=== PATIENT | female | born 1940 | race Caucasian/White ===

== ENCOUNTER 2016-11-12 07:02 | Inpatient (IN) | payer MEDICARE, OTHER ==
[~2016-11-12] VITALS: Ht 154.9 cm; Wt 60.0 kg
[2016-11-12] VITALS (7 sets, daily range): BP systolic 139–177; BP diastolic 69–85; PULSE 80–118; RESP 18–20; TEMP 100.8; Ht 154.9 cm; Wt 60.0 kg
[~2016-11-12 07:02] MED LIST: ACET500C5 PO; AMLO-147 PO; ASPI81TA3 PO; AZIT250T6 PO; FLUT16SP17 NASAL; HYD25 PO; HYDR-3671 PO; LISI40TA9 PO; LORA-441 PO; METO-407 PO; POTA8CAP PO
[2016-11-12] MEDS ORDERED: ASPIRIN 325 MG TAB PO STA (07:06)
[2016-11-12 07:25] LABS: ADD SCAN DIFF NO
[2016-11-12 07:36] LABS: POTASSIUM 3.3 mmol/L (3.5-5.1)
[2016-11-12 07:37] LABS: ABNORMAL IP MESSAGE 1; HEMOGLOBIN 13.5 g/dl (12.0-16.0); INR 1.05; MEAN CORPUSCULAR HEMOGLOBIN 30.1 pg (29.0-33.0); MEAN CORPUSCULAR HGB CONC 33.8 g/dl (32.0-37.0); MEAN CORPUSCULAR VOLUME 89.3 fl (82.0-101.0); PLATELET COUNT 403 10^3/UL (140-415); PROTIME 13.7 Sec (12.2-14.2); PT RATIO 1.1; RED BLOOD COUNT 4.48 10^6/ul (4.20-5.40); RED CELL DISTRIBUTION WIDTH 13.5 % (11.5-14.5); WHITE BLOOD COUNT 30.9 10^3/ul (4.8-10.8)
[2016-11-12 07:38] LABS: PARTIAL THROMBOPLASTIN TIME 33.6 Sec (25.0-35.0)
[2016-11-12 07:39] LABS: CREATININE 0.63 mg/dl (0.44-1.00)
[2016-11-12 07:40] LABS: CALCIUM 9.5 mg/dl (8.4-10.2)
[2016-11-12 07:52] LABS: TROPONIN-I 0.037 ng/ml (0.00-0.12)
[2016-11-12] MEDS ORDERED: morphine 4 MG/ML VIAL IV STA (08:01)
[2016-11-12] MEDS ORDERED: SOD CHLORIDE 0.9% 100 ML ONE (08:10)
[2016-11-12] MEDS ORDERED: IODIXANOL LOCM 100 ML BTL ONE (08:10)
--- NOTE | 2016-11-12 08:20 | RADRPT ---
PROCEDURE: XR Chest 1 view. CLINICAL INDICATION: Chest pain TECHNIQUE: AP views of the chest were obtained. COMPARISON: February 07, 2016 FINDINGS: The heart is large. Calcified atherosclerosis is noted in the aorta. Left-sided dual chamber pacema ker has its leads over the heart and appears grossly stable, given differences in technique. The siva ngs are hyperexpanded. Chronic interstitial prominence is seen in both lungs. Scattered subsegment al atelectasis is noted in the bilateral lower lobes. No consolidations are identified. No pneumoth orax is seen. Osseous structures are intact. IMPRESSION: Cardiomegaly with calcified atherosclerosis in the aorta. Hyperexpanded lungs with chronic mild interstitial prominence in both lungs. Findings could reflect COPD. Scattered subsegmental atelectasis in the bilateral lower lobes. RPTAT: AA .Maxx Lucio MD, Date Time Electronically viewed and signed by .Maxx Lucio MD, on 11/12/2016 08:20 .P/
[2016-11-12] MEDS ORDERED: SOD CHLORIDE 0.9% 500 ML IV ONE ×2 (08:30→10:00)
[2016-11-12 08:48] LABS: LYMPHOCYTES # 3.4 10^3/ul (0.8-2.9); MONOCYTE # 1.5 10^3/ul (0.3-0.9); NEUTROPHIL # 23.2 10^3/ul (1.6-7.5)
[2016-11-12] MEDS ORDERED: POTASSIUM CHLORIDE (SR) 10 MEQ TAB PO SCH (09:30)
--- NOTE | 2016-11-12 09:31 | RADRPT ---
PROCEDURE: CTA Chest and pulmonary angiogram. CLINICAL INDICATION: Chest pain and shortness of breath. Pleuritic chest pain and tachycardia. TECHNIQUE: CT scan of the chest and CT pulmonary angiogram was performed on a multidetector high-r esolution CT scanner. High-resolution thin slice coronal and sagittal imaging was obtained from the axial source images. 3-D volumetric rendered post processing was performed as well. The patient w as examined following the uncomplicated intravenous administration of 85 cc of Visipaque 320. The im ages were reviewed on a PACS workstation. The total exam CTDI equals 13.15, 5.04 and the total exam DLP equals 194.49 mGy-cm. One or more of the following dose reduction techniques were used: Automated exposure control. Adjustment of the mA and/or kV according to patient size. Use of iterative reconstruction technique. COMPARISON: No prior studies are available for comparison. FINDINGS: CT chest: There is dense consolidation in the posterior aspect of the left upper lobe. No focal opacification, effusion, pneumothorax, edema, or nodules are seen. The central tracheobronchial tree is clear. The mediastinum is unremarkable without evidence for mass or lymphadenopathy. The vascular structur es of the mediastinum are normal in course and caliber. The heart size is mildly enlarged without p ericardial thickening or effusion. There is left ventricular hypertrophy. Left subclavian dual chamb er pacemaker is in place. The axillary, subpectoral, and supraclavicular regions are unremarkable. There are small calcified nodules in the right thyroid lobe. Imaging obtained through the upper abdo men is remarkable for new 3 cm nodular mass in the left adrenal gland. There is approximately 1 cm f lash filling hemangioma in the lateral segment of the left hepatic lobe, unchanged. There is approx imately 3.3 cm solid mass in the left kidney The adrenal glands are symmetrically normal. The surr ounding chest wall is unremarkable. The osseous structures are remarkable for degenerative spondylo sis of the spine. CT pulmonary angiogram: No thrombus, clot, filling defect, or pulmonary web is identified. The pulmonary arteries are d[place] l in caliber and morphology. No filling defect is present to suggest pulmonary embolism. There is no evidence for pulmonary arterial hypertension. IMPRESSION: 1. No evidence for pulmonary embolism. 2. Dense consolidation in the posterior aspect of the left upper lobe in keeping with pneumonia. 3. Partially imaged approximately 3.3 cm solid mass in the left kidney. Recommend dedicated CT / o r MRI with contrast per renal protocol for further evaluation. 4. New approximately 3 cm left adrenal mass concerning for metastasis. 5. Approximately 1 cm flash filling hemangioma in the left hepatic lobe, unchanged. 6. Aortic and coronary artery calcifications. 7. Cardiomegaly with left ventricular hypertrophy. RPTAT: BB .Eric Knapp MD, MD Date Time Electronically viewed and signed by .Eric Knapp MD, on 11/12/2016 09:30 .O/
[2016-11-12] MEDS ORDERED: CEFTRIAXONE 1 GM/50 ML (PMX) 50 ML IVPB STA (09:39)
[2016-11-12] MEDS ORDERED: AZITHROMYCIN 500MG/NS (PMX) 250 ML IV STA (09:39)
[2016-11-12] MEDS ORDERED: ACETAMINOPHEN 325 MG TAB PO PRN (10:00)
[2016-11-12] MEDS ORDERED: SOD CHLORIDE 0.9% 1,000 ML IV ONE (10:00)
[2016-11-12] MEDS ORDERED: ONDANSETRON 4 MG INJ IV PRN (10:00)
[2016-11-12] MEDS ORDERED: INFLUENZA VIRUS VACCINE 0.5 ML SYG IM* ONE (11:30)
[2016-11-12] MEDS ORDERED: DOCUSATE SODIUM 100 MG CAP PO PRN (13:30)
[2016-11-12] MEDS ORDERED: LORAZEPAM 0.5 MG TAB PO PRN (13:30)
[2016-11-12] MEDS ORDERED: NITROGLYCERIN (SL) 0.4 MG TAB SL PRN (13:30)
[2016-11-12] MEDS ORDERED: ALBUTEROL/IPRATROPIUM (NEB) 3 ML AMP NEB PRN (13:30)
[2016-11-12] MEDS ORDERED: MAGNESIUM HYDROXIDE 30ML CUP PO PRN (13:30)
[2016-11-12] MEDS ORDERED: ZOLPIDEM 5 MG TAB PO PRN (13:30)
[2016-11-12] MEDS ORDERED: NACL 0.9% 3 ML SYG IV SCH (13:30)
[2016-11-12] MEDS ORDERED: IBUPROFEN 600 MG TAB PO PRN (13:30)
[2016-11-12] MEDS: morphine 2 MG INJ IV PRN ×2 (14:09→20:22)
[2016-11-12] MEDS: FLUTICASONE 0.05% 16 GM NAS SPRAY NASAL SCH ×2 (15:00→21:00)
[2016-11-12 15:26] LABS: CK-MB 0.38 ng/ml (0.0-2.4)
[2016-11-12 15:30] LABS: TROPONIN-I 0.029 ng/ml (0.00-0.12)
[2016-11-12 18:58] LABS: CK-MB 0.69 ng/ml (0.0-2.4)
[2016-11-12 19:01] LABS: TROPONIN-I 0.066 ng/ml (0.00-0.12)
[2016-11-12] MEDS: METOPROLOL 100 MG TAB PO SCH (20:31)
--- NOTE | 2016-11-12 21:49 | HP ---
DATE OF ADMISSION: 11/12/2016 REASON FOR ADMISSION: Chest pain, shortness of breath, pneumonia. HISTORY OF PRESENT ILLNESS: The patient is a 76-year-old female, very well known to me. She has a history of scoliosis, arthritis, arthralgia, questionable interstitial lung disease, hyper tension, osteoporosis, history of leukocytosis, status post bone marrow biopsy in the past, and also a history of multiple thyroid nodules and she is being followed closely by Dr. Segovia, the endocri nologist. The patient also has a history of renal and adrenal mass seen on the CAT scan in 2011, bu t the patient states that she knows about it and she deferred evaluation. The patient is also statu s post recent hospitalization to [facility] back in February 2016, when at that time s he was diagnosed with symptomatic bradycardia, second-degree AV block, and she underwent a pacemaker placement. The patient also gets Remicade for her psoriatic arthritis and she sees Dr. Machuca and Dr. Marshall, the aquatics manager specialist. The patient was in her usual state of health up until last week when she started to have a cough and mild shortness of breath. Her symptoms have worsene d to the point where she could not take a deep breath and she would complain of left-sided chest yeni n. She presents today to the emergency department and she was found to have significant leukocytosi s. Her white count was 30,000. Workup included a chest x-ray which showed cardiomegaly with calcif ied atherosclerosis in the aorta, hyperexpanded lungs with chronic mild interstitial prominence in b oth lungs; finding could reflect COPD, and scattered subsegmental atelectasis in the bilateral lower lobes. It was decided to proceed with a CT pulmonary angiogram because the patient was tachycardic , febrile. A CT scan did show, unfortunately, the following: Dense consolidation in the posterior aspect of the left upper lobe, in keeping with pneumonia. There is a partially imaged, approximatel y 3 x 3 cm solid mass in the left kidney. Recommend dedicated CT or MRI with contrast per renal pro tocol for further evaluation. New, approximately 3 cm left adrenal mass concerning for metastasis. Approximately 1 cm flash filling hemangioma in the left hepatic lobe, unchanged. Aortic and rea ry artery calcification. Cardiomegaly with left ventricular hypertrophy. The patient received Roce phin and azithromycin, also IV fluids, and she was admitted for further care. Otherwise, she denies any weight loss. She denies any loss of appetite. She denies any weakness or numbness. She does have generalized body ache secondary to psoriatic arthritis, complaining of some headaches. The pat iealysha denies dysuria. Denies any weakness or numbness. The patient is admitted for further care. I n the ER, influenza A and B were negative. 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 ALLERGIES: 1. LEVAQUIN. 2. ATENOLOL. SHE ACTUALLY TAKES BETA BLOCKERS. 3. SHE IS LACTOSE INTOLERANT. FAMILY HISTORY: Mother from pancreatic cancer. Father from a brain tumor at age 40. SOCIAL HISTORY: She used to smoke less than a pack a day, but stopped 25 years ago. Alcohol modera tely in the past. IV drug abuse is none. She does smoke marijuana. Her rheumatologists are Dr. Kuldeep Machuca and Dr. Marshall; handicraft or hobby shop manager is Dr. Todd Gao; [facility] primary medical doctor is Dr. Karolyn Ravi; business school dean is Dr. Christian Guzman; spout liner helper is Liz Segovia. She has also [facility] specialist, Dr. Garcia. MEDICATIONS: Include the followin. Remicade. 2. . 3. Vitamin D. 4. Folic acid. 5. Norvasc. 6. Lisinopril. 7. Metoprolol. 8. Flexeril. 9. [facility]. These are amongst some of the meds that she takes. PAST SURGICAL HISTORY: Includes vitrectomy in 2011, vaginal hysterectomy at age 27, and also pacema ker placement in February 2016. PHYSICAL EXAMINATION: VITAL SIGNS: Temperature is high as 102, pulse 86, respirations 18, blood pressure , saturatio ns 94% on room air. GENERAL: The patient is in no acute distress. The patient is pale. HEENT: Dry mucous membranes. CARDIOVASCULAR: S1 and S2. LUNGS: Decreased bilaterally. ABDOMEN: Soft, nontender. EXTREMITIES: No clubbing, cyanosis, or edema. The patient is moving all extremities. Strength is 5/5 in all extremities. LABORATORY: White count is 30.9, hemoglobin 13.5, hematocrit 40, platelet count is 403. Leukocytes 75%, bands 5%, lymphocytes 11%. Chemistry: Sodium is 141, potassium 3.3, chloride 100, bicarbonat e 24, BUN is 13, creatinine 0.63, glucose of 180. BNP is 1590. Troponin is negative at 0.037. INR is 1.05. Influenza A and B is negative. CT pulmonary angiogram as noted. Looking at all the records as well, she had a CT scan of the chest on 01/14/2012. At that time she was found to have bilateral thyroid nodules, may be benign or hilary gnant, ascending thoracic aorta. Left adrenal heterogeneous nodule measuring up to 2.6 cm. R ight adrenal nodule measuring up to 0.8 cm. Possibly solid left renal mass measuring 2.4 cm. Cyst in the mid left kidney measuring 2.3 cm. I recommended at that time an MRI. Again, the patient sta doreen that she deferred the treatment. EKG: Bifascicular block, left ventricular hypertrophy, possible lateral infarct, age undetermined, i nferior infarct, age undetermined. ASSESSMENT AND PLAN: This is an unfortunate 76-year-old female who is immunocompromised a s she has psoriatic arthritis, on Remicade, status post pacemaker placement, a history of persistent leukocytosis, and chronic pain, who presents with almost 1 week of flu-like symptoms and was found to have pneumonia, severe leukocytosis, and high grade fevers. 1. Respiratory. CT scan suggests pneumonia. I doubt tuberculosis. The patient will be treated azithromycin. Switch ceftriaxone to cefepime for slightly broader coverage because of the patient 's immunocompromised state. Monitor white count closely. The patient will be placed on breathing t reatments as needed, oxygen support, and will monitor the patient's symptoms. 2. Cardiovascular. Patient with an extensive cardiac history. No evidence of fluid overload state . The patient is status post pacemaker placement. Continue all antihypertensive medications. The patient will be placed on Lovenox for DVT prophylaxis. 3. Renal mass with adrenal mass. Will consult urology. May consider a dedicated MRI of the kidney s and adrenal glands. Will discuss with urology. 4. History of thyroid nodules. Dr. Segovia to follow. Can be done likely on an outpatient basis. 5. Patient to be placed on gastrointestinal prophylaxis with Protonix. 6. Case discussed with the family at bedside as well. 7. History of psoriatic arthritis. Will consult rheumatology, as the patient's symptoms occurred a fter Remicade administration. 8. Renal. Monitor potassium as the patient with hypokalemia. The patient will be monitored closel y in the telemetry unit as the patient is tachycardic and febrile. Will follow closely. Dictated By: SHANTA CARRINGTON/SHANTEL Conf#: [id number] DID#: [id number]
[2016-11-12] MEDS: CEFEPIME 2GM/50 ML (PMX) 50 ML IV SCH (22:10)
[2016-11-13] VITALS (12 sets, daily range): BP systolic 127–154; BP diastolic 64–78; PULSE 79–102; RESP 18–20
--- NOTE | 2016-11-13 00:55 | CONS ---
DATE OF ADMISSION: 11/12/2016 DATE OF CONSULTATION: 11/12/2016 TYPE OF CONSULTATION: Urology. REQUESTING PHYSICIAN: Dr. Devonte Tenorio Dear Devonte: Thank you for asking me to see this patient in urological consultation. HISTORY OF PRESENT ILLNESS: This is a very pleasant 76-year-old female who was admitted to the [facility] because of shortness of breath and pleuritic chest pain and tachycardia. The patient underwent a CT scan of the chest and abdomen and that showed a 3.3 cm solid mass in the left kidney and there was also a 3 cm left adrenal mass concerning for metastasis. Therefore, a urological consultation w as requested. The patient states that she was told in 2011 that she does have a left renal tumor an d at that time she was supposed to have followed up on that, but she never got down to it. At that t ludy, there was a 2.6 cm nodule in the left adrenal, and also there is a possible solid mass in the m id to lower left kidney and at that time, it measured 2.4 x 2.4 cm. The patient denies any urinary symptoms in that she does not have any history of gross hematuria, no dysuria, no urgency or urgency incontinence and she has not had any history of kidney stones. PAST MEDICAL HISTORY: Includes a history of pacemaker placement, history of hemorrhoids, injection of sclerosing agent in it, bilateral cataract surgery and also surgery on her retina. She does have a history of thyroid nodule that is hard and she sees Dr. Segovia for that. She has had a vaginal hysterectomy in 1967. She is known to have a history of hypertension. There is no history of diab etes. SOCIAL HISTORY: She used to smoke about a pack of cigarettes a day for about 30 years and she quit in 1986. There is no history of alcohol abuse. There is no history of hepatitis. No GI disease. She does, however, have a history of psoriatic arthritis and she smokes marijuana for pain control f or that. She also does get Remicade injections regularly for the psoriatic arthritis. She is a gra gem 13, para 2, 10 miscarries and 1 was a D and C. All normal deliveries. MEDICATIONS: That she presently is on include: 1. Azithromycin. 2. She got the influenza virus vaccine. 3. Lovenox. 4. Norvasc. 5. Aspirin. 6. Lisinopril. 7. Potassium chloride. 8. Protonix. 9. Cefepime. 10. Metoprolol. 11. Flonase. 12. Apresoline. 13. Lorazepam. 14. Nitroglycerin p.r.n. 15. Zofran p.r.n. 16. Ibuprofen p.r.n. for pain. 17. Morphine. 18. Ambien. 19. Colace. 20. Magnesium hydroxide. 21. Albuterol. 22. Ipratropium. PHYSICAL EXAMINATION GENERAL: Reveals an elderly female who is very pleasant. She is a 76 years old. She weighs 60 kg. She is 61 inches tall. VITAL SIGNS: She had a temperature of 102 at noon today and now her temperature is 100, the pulse w as 87, respiration 18, blood pressure 139/85. There is no cervical adenopathy. NECK: Soft and supple. She did have also a right breast biopsy and that was negative 3 years ago. ABDOMEN: Soft. There is no abdominal mass palpable. There are no scars on the abdomen. There is n o flank tenderness. PELVIC: Revealed no mass and no discharge. EXTREMITIES: Reveal no edema. The patient also on the physical exam does have a pacemaker. LABORATORY DATA: Her CBC shows a white count of 30.9, hemoglobin 13.5, hematocrit 40.0. The BUN is 13, creatinine 0.63, sodium 141, potassium 3.3, chloride 100, CO2 of 24. PT is 13.7, INR 1.05. The chest x-ray is reported as cardiomegaly with calcified atherosclerosis in the aorta, hyperexpand ed lungs was chronic mild interstitial prominence in both lungs. Findings could reflect COPD, scatt ered subsegmental atelectasis in the bilateral lower lobes. The CT scan reported as there is no evid ence of pulmonary embolism, dense consolidation in the posterior aspect of the left upper lobe in ke eping with pneumonia, partially imaged approximately 3.3 solid mass in the left kidney and recommend ed dedicated CT or MRI with contrast per renal protocol for further evaluation, new approximately 3 cm left adrenal mass concerning for mass approximately 1 cm flash filling hemangioma in the left hep atic lobe, unchanged, aortic and coronary artery calcification, cardiomegaly with left ventricular h ypertrophy. IMPRESSION: Left renal mass not well delineated with the CT of the chest and left adrenal mass. RECOMMENDATION: To do a CT scan of the abdomen and pelvis with IV contrast, and we could do that to [place] or when she is more stable from her lung condition. I will follow her urological problem wit laurel you. I do thank you for allowing me to help in her care. Dictated By: ANUJA ODOM MD BB/NTS Conf#: [id number] DID#: [id number] CC: DEVONTE TENORIO MD;*EndCC*
[2016-11-13] MEDS: morphine 2 MG INJ IV PRN (03:52)
[2016-11-13] MEDS: PANTOPRAZOLE (EC) 40 MG TAB PO SCH (05:17)
[2016-11-13] MEDS: CEFEPIME 2GM/50 ML (PMX) 50 ML IV SCH ×3 (05:17→21:26)
[2016-11-13 06:23] LABS: ADD SCAN DIFF NO
[2016-11-13 06:26] LABS: BASOPHILS % 0.2 % (0.0-2.0); EOSINOPHILS # 0.1 10^3/ul (0.0-0.5); EOSINOPHILS % 0.3 % (0.0-7.0); LYMPHOCYTES # 3.3 10^3/ul (0.8-2.9); LYMPHOCYTES % 17.4 % (15.0-51.0); MEAN CORPUSCULAR HEMOGLOBIN 29.9 pg (29.0-33.0); MEAN CORPUSCULAR HGB CONC 32.4 g/dl (32.0-37.0); MEAN PLATELET VOLUME 9.7 fl (7.4-10.4); MONOCYTE # 1.3 10^3/ul (0.3-0.9); NEUTROPHIL # 14.3 10^3/ul (1.6-7.5); NEUTROPHILS % 74.5 % (39.0-77.0); PLATELET COUNT 348 10^3/UL (140-415); RED BLOOD COUNT 4.02 10^6/ul (4.20-5.40); RED CELL DISTRIBUTION WIDTH 13.7 % (11.5-14.5); WHITE BLOOD COUNT 19.2 10^3/ul (4.8-10.8)
[2016-11-13 07:01] LABS: ALBUMIN 3.3 g/dl (3.3-4.9)
[2016-11-13 07:02] LABS: POTASSIUM 3.9 mmol/L (3.5-5.1)
[2016-11-13 07:04] LABS: ALBUMIN/GLOBULIN RATIO 0.97; BILIRUBIN,INDIRECT 0.1 mg/dl (0-1.1); BILIRUBIN,TOTAL 0.1 mg/dl (0.2-1.3); CALCIUM 8.7 mg/dl (8.4-10.2); CREATININE 0.6 mg/dl (0.44-1.00); TOTAL PROTEIN 6.7 g/dl (6.1-8.1)
[2016-11-13 07:05] LABS: MAGNESIUM 1.9 mg/dl (1.7-2.5)
[2016-11-13 08:24] LABS: THYROID STIMULATING HORMONE 0.466 MIU/L (0.465-4.680)
[2016-11-13] MEDS: LISINOPRIL 20 MG TAB PO SCH (08:46)
[2016-11-13] MEDS: POTASSIUM CHLORIDE (SR) 8 MEQ CAP PO SCH (08:46)
[2016-11-13] MEDS: ASPIRIN 81 MG TAB PO SCH (08:46)
[2016-11-13] MEDS: AMLODIPINE 10 MG TAB PO SCH (08:47)
[2016-11-13] MEDS: METOPROLOL 100 MG TAB PO SCH ×2 (08:47→21:27)
[2016-11-13] MEDS: ENOXAPARIN 40 MG/0.4 ML SYG SC SCH (08:50)
[2016-11-13] MEDS ORDERED: INFLUENZA VIRUS VACCINE 0.5 ML (DISPENSING) IM* ONE (09:00)
--- NOTE | 2016-11-13 09:55 | CONS ---
DATE OF ADMISSION: 11/12/2016 DATE OF CONSULTATION: 11/13/2016 TYPE OF CONSULTATION: Cardiology. REFERRING PHYSICIAN: Dr. Trav MD REASON FOR CONSULTATION: Chest pain. History of heart block. CHIEF COMPLAINT: Shortness of breath, cough and pleuritic chest pain. HISTORY OF PRESENT ILLNESS: Thank you for this referral. History obtained from the patient, corey rodriguez review of the old chart, discussion with Dr. Tenorio and staff. The patient also known from previ ous admissions to the hospital. This is a pleasant 76-year-old female with history of hypertension, history of tachybrady syndrome, status post permanent pacemaker who has been coughing and having sh ortness of breath over the past few days. He got worse and he was having pain with the cough. Yeste rdmichel came into emergency room. By her workup she had a chest x-ray done which only showed hyperexte nded lungs with chronic ____ lung disease. CT pulmonary angiogram was done because of reported ches t pain which did not show any evidence of pulmonary embolus; however, showed dense consolidation in the posterior aspect of the left upper lobe in keeping with pneumonia. The patient has been admitte d for further workup and antibiotic treatment. MEDICATIONS AT HOME: Reviewed as per medical reconciliation, which was personally reviewed. PAST MEDICAL HISTORY: History of hypertension, very labile, difficult to treat. History of sick sin us syndrome with tachybrady syndrome with episode of 2:1 AV block status permanent pacemaker placeme nt by myself about a year ago, history of psoriatic arthritis, possible psoriasis, macular degenerat ion, osteoarthritis, osteopenia, history of multiple thyroid nodules. ALLERGIES: LEVAQUIN. SHE STATED THAT SHE IS ALLERGIC TO ATENOLOL but had tolerated beta bonnie we ll with no issues. Also, lactose intolerance. FAMILY HISTORY: The patient's mother of pancreatic cancer. Father of brain tumor at age 40. SOCIAL HISTORY: The patient has quit smoking. Denies any heavy alcohol use or drug use. Does smok e marijuana though. MEDICATIONS: As per medical reconciliation, personally reviewed, includes also Remicade as well. REVIEW OF SYSTEMS: She denied all other except for above-mentioned. Also, multiple joint pain as w ell. PHYSICAL EXAMINATION: VITAL SIGNS: Temperature 98.1, heart rate 85, blood pressure 142/67, respiration rate of 18, satura ting 95%. HEENT: Normocephalic, atraumatic. Pupils are equal. NECK: Supple. CHEST: Status post pacemaker with no bleeding, no hematoma. CARDIOVASCULAR: Regular rate and rhythm, systolic murmur grade I. PULMONARY: With mild diffuse rhonchi, ____ . GASTROINTESTINAL: Soft, nontender. EXTREMITIES: Trivial edema. NEUROLOGIC: Awake and alert, oriented x3, nonfocal. PSYCHIATRIC: Calm, pleasant. LABORATORY: WBC was 30,000 yesterday and down to 19.2 today, hemoglobin of 12.0, platelet 348. Sod ium 147, potassium 3.9, BUN of 13, creatinine 0.6, glucose of 140. EKG was personally reviewed, omer wed normal sinus rhythm, slight sinus tachycardia with right bundle branch block. Troponin was negative at 0.066. ASSESSMENT AND PLAN: 1. Chest pain, appeared to be nonanginal secondary to severe pneumonia. 2. Lobar pneumonia. 3. History of sick sinus syndrome and tachybrady syndrome. 4. Status post permanent pacemaker. 5. History of psoriatic arthritis. 6. Renal mass and adrenal mass. RECOMMENDATIONS: The patient has a [employer] pacemaker, which I do not believe is MRI compatible. A ntibiotic is managed as per Dr. Tenorio. Continue the blood pressure medications. The patient is als o being evaluated by multiple consultants including urology as well. Continue to monitor with you. Thank you for this referral. Dictated By: KEVIN GARNER MD AV/SHANTEL Conf#: [id number] DID#: [id number] CC: SHANTA TENORIO MD;*EndCC*
[2016-11-13] MEDS: FLUTICASONE 0.05% 16 GM NAS SPRAY NASAL SCH ×2 (12:34→21:26)
[2016-11-13] MEDS: HYDROCODONE/APAP (5/325) TAB PO PRN ×2 (12:35→21:35)
[2016-11-13] MEDS: AZITHROMYCIN 500MG/NS (PMX) 250 ML IV SCH (12:36)
--- NOTE | 2016-11-13 13:41 | RADRPT ---
PROCEDURE: Renal US. CLINICAL INDICATION: Partially visualized mass seen in the left kidney on prior CT. Flank pain. TECHNIQUE: Multiple sonographic images of the kidneys were obtained. The images were reviewed on a PACS workstation. COMPARISON: CT November 12, 2016 FINDINGS: The right kidney measures 10.1 cm. The left kidney measures 10.5 cm. The kidneys demonstrate normal echogenicity. A 3.0 cm heterogeneously hypoechoic, solid nodule is identified in the superior pole o f the left kidney. An adjacent 3.0 cm simple appearing cyst is observed. A 5 mm echogenic, shadowin g stone is identified in the midportion of the right kidney. Questionable, trace left hydronephrosi s is observed. The bladder is filled with a moderate amount of urine and has an unremarkable appearance. IMPRESSION: 3.0 cm heterogeneously hypoechoic solid nodule in the superior pole of the left kidney. Malignancy is not excluded. Further characterization with CT urogram or MRI is recommended. 3.0 cm simple cyst in the superior pole of the left kidney. 5 mm nonobstructing stone in the midportion of the right kidney. Questionable, trace left hydronephrosis. Etiology is uncertain. If further characterization is nee ded CT or MRI could be helpful. RPTAT: AA .Maxx Lucio MD, Date Time Electronically viewed and signed by .Maxx Lucio MD, MD on 11/13/2016 13:41 .P/
--- NOTE | 2016-11-13 13:54 | CONS ---
DATE OF ADMISSION: 11/12/2016 DATE OF CONSULTATION: TYPE OF CONSULTATION: Rheumatology HISTORY OF PRESENT ILLNESS: The patient is a 76-year-old woman with a history of psoriati c arthritis who is being treated and doing well on Remicade every 6 weeks. She was admitted now wit h several days of cough and increasing shortness of breath and was noted to have on CT scan left upp er lobe pneumonia. Also she had leukocytosis of 30,000. She has been treated with antibiotics and feels much better at this point. Her white count has decreased to 19,000. The patient has chronic leukocytosis of around 13,000. In addition, she has a history of chronic adrenal mass noted initial ly in 2011, and the patient apparently did not want further evaluation in the past. That adrenal ma ss at this point was noted to have increased from 2.4 to 3 cm. Unclear if it relates to possible me tastasis. In addition, she was also noted to have a 3 x 3 cm solid mass in the left kidney. The patient received her last Remicade infusion on 10/27/2016. She had been evaluated also a week b efore that and a chest x-ray at that time was read as negative. Her white count was around 13,000 o n both occasions, actually 12,400 on 10/27/2016. PAST MEDICAL HISTORY: Positive for psoriatic arthritis, , osteoporosis, hypertension, osteoart hritis, history of bradycardia, status post pacemaker placement in 01/2016, status post right breas t biopsy in 1987, hysterectomy in 1967 of uterus only, and left fourth digit trigger release in 1999. MEDICATIONS: Prior to admission include: 1. Ibuprofen occasionally. 2. Vitamin D. 3. Flexeril 10 mg at night p.r.n. 4. Lisinopril 40 mg daily. 5. Voltaren gel p.r.n. 6. [place] 10/325 b.i.d. p.r.n. 7. Baby aspirin 81 daily. 8. Flonase 9. Hydralazine 25 mg b.i.d. 10. Amlodipine 5 mg daily. 11. Metoprolol 100 mg b.i.d. 12. Remicade 300 mg every 6 weeks. ALLERGIES: 1. LEVAQUIN. 2. ATENOLOL. 3. IV BONIVA. SOCIAL HISTORY: The patient is . Does not smoke. Drinks alcohol rarely. FAMILY HISTORY: Positive for arthritis in a maternal aunt. 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 Denies upper or lower back pain. GENERAL: Denies fevers, fatigue. SKIN: With the psoriasis doing very well. HEENT: Without dry eyes or mouth. RESPIRATORY: Some shortness of breath but much improved. No pleuritic pain. CARDIOVASCULAR: No present palpitations. GASTROINTESTINAL: Denies GERD or abdominal pain. GENITOURINARY: Denies frequent urination or hematuria. EXTREMITIES: No cyanosis or edema. NEUROLOGIC: Without specific numbness or paresthesias. PHYSICAL EXAMINATION: VITAL SIGNS: Afebrile, blood pressure 127/78, respirations 19, pulse 83, O2 saturation 97% on room air. GENERAL: Well-developed, well-nourished woman in no acute distress, alert, oriented x3. SKIN: With minimal psoriatic areas. No other acute rashes. HEENT: Without acute oral or ocular lesions. NECK: Without lymphadenopathy. CHEST: With occasional scattered rhonchi. HEART: Regular rate and rhythm, I/ systolic ejection murmur. ABDOMEN: Soft, without masses or tenderness EXTREMITIES: Without cyanosis or edema noted. MUSCULOSKELETAL: Without active synovitis. Some tenderness to the left foot with deformities. NEUROLOGIC: Grossly intact. ASSESSMENT: 1. Pneumonia. Unclear if related to Remicade. Remicade may decrease ability to fight infection, a lthough probably does not significantly increase the risk of infection. She seemed to have been sta ble up to a few days ago. 2. Psoriatic arthritis, doing well on present medications. 3. Adrenal mass, workup in progress. 4. Renal mass, workup in progress. PLAN: Continue present plan with antibiotics and workup. Thank you for having me see the patient rheumatologically. Dictated By: RENUKA LÓPEZ/SHANTEL Conf#: [id number] DID#: [id number]
--- NOTE | 2016-11-13 16:45 | PN ---
DATE: 11/13/2016 The patient states she is feeling better. Currently denies chest pain or shortness of breath. The patient was seen by the urologist, Dr. Mina, and by the personal injury attorney, Dr. Marshall. I appreci ate their input. I reviewed their recommendations. The patient is now afebrile since admission, so she is responding well to the treatment. PHYSICAL EXAMINATION: VITAL SIGNS: Temperature is 98, pulse is 80, respirations 19, blood pressure 127/78, saturation 97% on room air. GENERAL: The patient is in no acute distress. HEENT: Normocephalic, atraumatic. The patient is pale. No JVD. CARDIOVASCULAR: S1 and S2. LUNGS: Decreased bilaterally. ABDOMEN: Soft, nontender. EXTREMITIES: No clubbing, cyanosis, or edema. The patient is moving all extremities. LABORATORY: White count improved to 19.2 from 30.9. Hemoglobin 12, hematocrit 37, platelet count 3 48, neutrophils 75%, lymphocytes 17%. Chemistry: Sodium is 147, potassium 3.9, chloride 106, bicar bonate 28, BUN is 13, creatinine 0.6, glucose of 140. Albumin 3.3. TSH is 0.466. Liver enzymes ar e normal. INR 1.05. Influenza A and B are negative. Renal ultrasound done on 11/13/2013 shows the followin) 3-cm heterogeneously hyperechoic solid nodule in the superior pole of the left kidney. Malignancy is not excluded. Further characterization with CT urogram or MRI is recommended . There is also a 3-cm simple cyst in the superior pole of the left kidney. A 5-mm nonobstructing stone in the mid portion of the right kidney. Questionable trace left hydronephrosis. Etiology unc lear. MEDICATIONS: 1. Azithromycin, IV dose per pharmacy. 2. Lovenox 40 mg subcutaneous daily. 3. Norvasc 10 mg daily. 4. Aspirin 81 mg daily. 5. Zestril 20 mg daily. 6. KCl 8 mEq daily. 7. Protonix 40 mg daily. 8. Cefepime 1 gram q.8h. 9. Lopressor 100 b.i.d. 10. Hydralazine q.8h. 11. Ativan p.r.n. 12. Zofran p.r.n. 13. Nitroglycerin p.r.n. 14. Ibuprofen p.r.n. 15. Hubert p.r.n. 16. Morphine p.r.n. 17. Ambien p.r.n. 18. Colace p.r.n. 19. Milk of Magnesia p.r.n. 20. DuoNebs every 2 hours p.r.n. for shortness of breath. ASSESSMENT AND PLAN: This is a 76-year-old female who is immunocompromised. She has psori atic arthritis, on Remicade. Also status post pacemaker placement, chronic pain, back pain, who pre sented with 1 week of flu-like symptoms and was found to have pneumonia and severe leukocytosis. 1. Pneumonia. Patient responding to antibiotic regimen with erythromycin and cefepime. Continue t he same. Follow up white count. Clinically improving. Continue O2 support and breathing treatment s as needed. 2. Cardiovascular. The patient is status post pacemaker placement. Blood pressure is under contro l with the current medications. Continue Lovenox for DVT prophylaxis. 3. Left renal mass, concerning for malignancy. Will do a CT urogram. We cannot do a MRI because o f the patient's pacemaker. Further recommendations per Dr. Reinaldo Mina. 4. History of thyroid nodules. Outpatient followup. 5. Continue gastrointestinal prophylaxis with Protonix. 6. Psoriatic arthritis. Status post Remicade. I appreciate Dr. Marshall's impression. 7. Brief chest pain on admission, likely related to pneumonia, and currently chest pain free. Pain control will be provided. Activity as tolerated. 8. Adrenal mass. Differential may include primary hyperaldosteronism, pheochromocytoma, or [place] s syndrome. May consider endocrine recommendations. May consider oncology consultation as well. Abigail simms will follow. Dictated By: SHANTA CARRINGTON/SHANTEL Conf#: [id number] DID#: [id number]
--- NOTE | 2016-11-13 21:40 | PN ---
DATE: 11/13/2016 SUBJECTIVE: Left renal tumor. The patient today is feeling comfortable. She denies any abdominal pain. OBJECTIVE: VITAL SIGNS: Her temperature is 98.1, pulse 97, respirations 18, blood pressure 154/66. ABDOMEN: Soft. LABORATORY DATA: CBC shows a white count of 19.2, hemoglobin 12.0, hematocrit 37.0. The BUN is 13, creatinine 0.6, sodium 147, potassium 3.9, chloride 106, CO2 28. The blood cultures, no growth. She did have a renal ultrasound today which showed a 3.3 cm heterogeneous, hypoechoic solid nodule i n the superior pole of the left kidney. Malignancy is not excluded. Further characterization with CT urogram or MRI is recommended. A 3 cm simple cyst in the superior pole of the left kidney, 5 mm nonobstructing stone in the midportion of right kidney. Questionable trace left hydronephrosis, brian ology is uncertain. If further characterization is needed, CT or MRI could be helpful. IMPRESSION: Left renal tumor. PLAN: Do CT urogram tomorrow. I did not order that today because she just had a CT of the chest ye sterday. Therefore, I did not want to have her have more contrast material 2 days in a row. Howeve r, her creatinine remained good, therefore will do the CT urogram tomorrow, and that will characteri ze the tumor and the adrenal and all the renal pathology very well, and then we could decide about t he treatment. Dictated By: ANUJA MEDLEY/SHANTEL Conf#: [id number] DID#: [id number]
[2016-11-14] VITALS (13 sets, daily range): BP systolic 124–179; BP diastolic 63–81; PULSE 60–87; RESP 18–20
[2016-11-14] MEDS: PANTOPRAZOLE (EC) 40 MG TAB PO SCH (04:51)
[2016-11-14] MEDS: CEFEPIME 2GM/50 ML (PMX) 50 ML IV SCH ×3 (04:51→23:12)
[2016-11-14 05:58] LABS: ADD SCAN DIFF NO
[2016-11-14 06:16] LABS: PHOSPHORUS 1.7 mg/dl (2.5-4.9)
[2016-11-14 06:18] LABS: BASOPHIL # 0.1 10^3/ul (0.0-0.1); BASOPHILS % 0.4 % (0.0-2.0); EOSINOPHILS # 0.1 10^3/ul (0.0-0.5); EOSINOPHILS % 0.9 % (0.0-7.0); HEMATOCRIT 38.6 % (37.0-47.0); HEMOGLOBIN 12.5 g/dl (12.0-16.0); LYMPHOCYTES # 3.3 10^3/ul (0.8-2.9); LYMPHOCYTES % 23.7 % (15.0-51.0); MEAN CORPUSCULAR HEMOGLOBIN 29.8 pg (29.0-33.0); MEAN CORPUSCULAR HGB CONC 32.4 g/dl (32.0-37.0); MEAN CORPUSCULAR VOLUME 92.1 fl (82.0-101.0); MEAN PLATELET VOLUME 9.5 fl (7.4-10.4); MONOCYTE # 0.9 10^3/ul (0.3-0.9); MONOCYTES % 6.5 % (0.0-11.0); NEUTROPHIL # 9.4 10^3/ul (1.6-7.5); PLATELET COUNT 396 10^3/UL (140-415); RED BLOOD COUNT 4.19 10^6/ul (4.20-5.40); RED CELL DISTRIBUTION WIDTH 13.6 % (11.5-14.5); WHITE BLOOD COUNT 13.8 10^3/ul (4.8-10.8)
[2016-11-14 07:03] LABS: POTASSIUM 3.4 mmol/L (3.5-5.1)
[2016-11-14 07:06] LABS: CREATININE 0.56 mg/dl (0.44-1.00)
[2016-11-14 07:07] LABS: CALCIUM 8.7 mg/dl (8.4-10.2)
[2016-11-14] MEDS: FLUTICASONE 0.05% 16 GM NAS SPRAY NASAL SCH ×2 (09:35→20:36)
[2016-11-14] MEDS: ASPIRIN 81 MG TAB PO SCH (09:35)
[2016-11-14] MEDS: LISINOPRIL 20 MG TAB PO SCH (09:36)
[2016-11-14] MEDS: AMLODIPINE 10 MG TAB PO SCH (09:36)
[2016-11-14] MEDS: POTASSIUM CHLORIDE (SR) 8 MEQ CAP PO SCH (09:36)
[2016-11-14] MEDS: METOPROLOL 100 MG TAB PO SCH ×2 (09:36→20:35)
[2016-11-14] MEDS: ENOXAPARIN 40 MG/0.4 ML SYG SC SCH (09:40)
[2016-11-14] MEDS: AZITHROMYCIN 500MG/NS (PMX) 250 ML IV SCH (12:24)
[2016-11-14] MEDS ORDERED: SOD CHLORIDE 0.9% 100 ML ONE (13:15)
[2016-11-14] MEDS ORDERED: IODIXANOL LOCM 100 ML BTL ONE (13:15)
--- NOTE | 2016-11-14 14:18 | PN ---
DATE: 11/14/2016 HISTORY OF PRESENT ILLNESS: Left renal tumor as demonstrated on CT of the chest and renal ultrasoun d. The patient is awaiting to have the CT urogram with IV contrast. OBJECTIVE: VITAL SIGNS: Her temperature is 97.8, the blood pressure 164/75, pulse is 74, respiration 18. LABORATORY DATA: Her CBC shows a white count of 13.8, hemoglobin 12.5, hematocrit 38.6. BUN is 13, creatinine 0.56. Electrolytes: Sodium 144, potassium 3.4, chloride 106, CO2 25. IMPRESSION: Left renal tumor. PLAN: To do the CT urogram and she is still waiting for it to be done today. Dictated By: ANUJA MEDLEY/SHANTEL Conf#: [id number] DID#: [id number]
[2016-11-14] MEDS: SPIRONOLACTONE 25 MG TAB PO SCH (15:07)
--- NOTE | 2016-11-14 15:15 | PN ---
DATE: 11/14/2016 SUBJECTIVE: Patient was seen. Complaining of increased swelling, says she has not been feeling so good. Otherwise her infection is under control, as her white count is normalizing. I appreciate Dr Yoni Mina's input. The patient just underwent a CT scan of the abdomen and pelvis to evaluate the micheal ann's renal mass and adrenal mass. PHYSICAL EXAMINATION: VITAL SIGNS: Temperature is 97.8, pulse 75, respirations 18, blood pressure 164/75, saturation 95% on room air. GENERAL: The patient is in no acute distress. HEENT: Normocephalic, atraumatic. The patient is pale. No JVD. CARDIOVASCULAR: S1 and S2. Regular rate. LUNGS: Clear. ABDOMEN: Soft, nontender. EXTREMITIES: No clubbing, cyanosis, or edema. LABORATORY: Sodium is 144, potassium is slightly low at 3.4, chloride 106, bicarbonate 25, BUN is 1 3, creatinine 0.56, glucose 141, phosphorus 1.7, magnesium 2.0. White count is 13.8, yesterday it w as 19.2. Hemoglobin is 12.5, hematocrit 39, platelet count is 396, neutrophils 68%, lymphocytes 24%. Respiratory culture shows normal respiratory stephen. Again, CT pulmonary angiogram did show dense consolidation in the posterior aspect of the left upper lobe, in keeping with pneumonia. Renal ultr asound shows a 3-cm heterogeneously hypoechoic solid nodule in the superior pole of the left kidney and a 3-cm simple cyst in the superior pole of the left kidney. Questionable trace left hydronephro sis. CURRENT MEDICATIONS: Include: 1. Aldactone 25 mg daily. 2. Azithromycin IV dose per pharmacy. 3. Lovenox 40 mg subcutaneous daily. 4. Norvasc 10 mg daily. 5. Aspirin 81 mg daily. 6. 4 mg daily. 7. KCl 8 mEq daily. 8. Protonix 40 mg daily. 9. Cefepime 1 gram q.8h. 10. Lopressor 100 b.i.d. 11. Hydralazine 100 q.8h. 12. Ativan p.r.n. 13. Zofran p.r.n. 14. Motrin p.r.n. 15. Delaplaine p.r.n. 16. Morphine p.r.n. 17. Ambien p.r.n. 18. Colace p.r.n. 19. Milk of Magnesia p.r.n. 20. DuoNeb p.r.n. CT scan of the abdomen and pelvis, results are pending. ASSESSMENT AND PLAN: This is a 76-year-old female who is immunocompromised as she has pso riatic arthritis, on Remicade. She is also status post pacemaker placement and chronic pain, who pre sented with 1 week of flu-like symptoms and was found to have pneumonia and severe leukocytosis. 1. Pneumonia. Continue azithromycin and cefepime. White count is trending down. Continue O2 supp ort and breathing treatments as needed. 2. Cardiovascular. Status post pacemaker placement. Blood pressure remains high. I am concerned about possible pheochromocytoma, as the patient has an adrenal mass, hypertension, and night sweats. Will check urine metanephrines. May consider endocrine recommendations. Follow up CT scan of the abdomen. 3. Left renal mass, concerning for malignancy. Again, follow up CT scan results. Likely follow up at [facility] for possible laparoscopic resection, again, if we are concerned about malignancy. 4. Psoriatic arthritis. She has been on Remicade. Dr. Marshall is following. 5. Chest pain. May be related to her hypertension. Dr. Booth is following. Troponins are negati ve. Likely can downgrade to med/surg. 6. Continue Protonix for GI prophylaxis. 7. We will follow. Dictated By: SHANTA CARRINGTON/SHANTEL Conf#: [id number] DID#: [id number]
[2016-11-14] MEDS: morphine 2 MG INJ IV PRN (20:35)
[2016-11-14] MEDS: ONDANSETRON 4 MG INJ IV PRN (20:44)
--- NOTE | 2016-11-14 20:56 | RADRPT ---
PROCEDURE: CT Abdomen and Pelvis with and without contrast. CLINICAL INDICATION: Abdominal and pelvic pain. Left renal mass. TECHNIQUE: CT scan of the abdomen and pelvis with and without contrast was performed. The patient was scanned both before and following the uncomplicated intravenous administration of 100 cc of Visi paque 320. Coronal and sagittal reformatted images were obtained from the axial source images. Imag es were reviewed on a high-resolution PACS workstation. Total exam DLP is 1022.00 mGy-cm. CTDIvol is 6.72 mGy. One or more of the following dose reduction techniques were used: Automated exposure c ontrol, adjustment of the mA and/or kV according to patient size, use of iterative reconstruction te chnique. COMPARISON: None. FINDINGS: There is a dual lead permanent pacemaker with leads in the right atrium and right ventricle. The he art size is normal. There is no pericardial effusion or pleural effusion. Mild atelectasis is pres ent at the left lung base posteriorly. The lung bases are otherwise clear. The liver is normal in size and attenuation. Punctate calcifications are present in the liver from p revious granulomatous disease. There is no other focal hepatic lesion. Possible gallstones are present in the gallbladder. There is no evidence of cholecystitis. The larry e ducts are normal. The spleen is normal in size. Multiple punctate calcifications are present in the spleen from previ ous granulomatous disease. There is no other focal splenic lesion. There is a probably benign 1 cm low attenuation nodule inferiorly in the right adrenal gland. There is a enhancing mass in the left adrenal measuring 2.2 x 3.0 cm. On noncontrast images the mass has a CT number of 8 and on postcontrast images the mass has a CT number of 73. The pancreas is unremarkable with no mass or evidence of pancreatitis. Both kidneys demonstrate normal contrast enhancement. There is a benign cyst inferiorly in the rig ht kidney measuring 0.8 cm. The right kidney is otherwise normal with no other mass, hydronephrosis, or calculus. The right ureter is also normal. There is a nonenhancing benign cyst in the mid to u pper left kidney laterally measuring 3.2 cm in maximal dimension. Inferior to this cyst, there is a mass with irregular peripheral enhancement and inferior peripheral calcification. The mass measure s approximately 2.5 x 2.3 cm. A benign cyst is present inferiorly in the left kidney measuring 1.0 cm. There is no left renal calculus or hydronephrosis. The left ureter is normal. The abdominal aorta is not dilated. There is calcification in the aorta consistent with atheroscler osis. There is a mildly enlarged 1.0 cm left retroperitoneal lymph node at the level of the left renal vei n. There is no other retroperitoneal lymphadenopathy. There is no pelvic lymphadenopathy or mass. The bladder and distal ureters are normal. The periappendiceal region is unremarkable with no evidence of appendicitis. The bowel and mesentery are normal. There is no free fluid or free gas. There are degenerative changes of the spine. There is no fracture or lytic lesion. IMPRESSION: 1. Dual lead permanent pacemaker. 2. Mild atelectasis at the left lung base posteriorly. 3. Punctate calcifications in the liver and spleen from previous granulomatous disease. 4. Possible gallstones in the gallbladder. No evidence of cholecystitis. 5. Probably benign 1 cm low attenuation nodule inferiorly in the right adrenal gland. 6. Enhancing mass in the left adrenal measuring 2.2 x 3.0 cm. This may be malignant. Correlation with MRI should be considered. 7. Benign bilateral renal cysts. 8. Inferior to a cyst in the mid left kidney there is a solid mass with irregular peripheral enhanc ement and calcification measuring approximately 2.5 x 2.3 cm. This is consistent with neoplasm. 9. Atherosclerosis. 10. Mildly enlarged left retroperitoneal lymph node measuring 1.0 cm. 11. Degenerative changes of the spine. 121. Otherwise unremarkable study. RPTAT: QQ .Kip Lawson MD, MD Date Time Electronically viewed and signed by .Kip Lawson MD, on 11/14/2016 20:55 .R/
[2016-11-15 05:39] LABS: ADD SCAN DIFF NO
[2016-11-15 05:53] LABS: POTASSIUM 3.5 mmol/L (3.5-5.1)
[2016-11-15 05:54] LABS: BASOPHIL # 0.1 10^3/ul (0.0-0.1); BASOPHILS % 0.5 % (0.0-2.0); EOSINOPHILS # 0.2 10^3/ul (0.0-0.5); EOSINOPHILS % 1.4 % (0.0-7.0); HEMATOCRIT 39.5 % (37.0-47.0); HEMOGLOBIN 12.7 g/dl (12.0-16.0); LYMPHOCYTES # 3.7 10^3/ul (0.8-2.9); LYMPHOCYTES % 31.6 % (15.0-51.0); MEAN CORPUSCULAR HEMOGLOBIN 29.4 pg (29.0-33.0); MEAN CORPUSCULAR HGB CONC 32.2 g/dl (32.0-37.0); MEAN CORPUSCULAR VOLUME 91.4 fl (82.0-101.0); MEAN PLATELET VOLUME 9.6 fl (7.4-10.4); MONOCYTE # 0.9 10^3/ul (0.3-0.9); MONOCYTES % 7.6 % (0.0-11.0); NEUTROPHIL # 6.8 10^3/ul (1.6-7.5); NEUTROPHILS % 58.3 % (39.0-77.0); PLATELET COUNT 418 10^3/UL (140-415); RED BLOOD COUNT 4.32 10^6/ul (4.20-5.40); RED CELL DISTRIBUTION WIDTH 13.6 % (11.5-14.5); WHITE BLOOD COUNT 11.7 10^3/ul (4.8-10.8)
[2016-11-15 05:55] LABS: CREATININE 0.62 mg/dl (0.44-1.00)
[2016-11-15 05:56] LABS: CALCIUM 9.1 mg/dl (8.4-10.2)
[2016-11-15 05:59] LABS: MAGNESIUM 1.9 mg/dl (1.7-2.5); PHOSPHORUS 2.7 mg/dl (2.5-4.9)
[2016-11-15] MEDS: PANTOPRAZOLE (EC) 40 MG TAB PO SCH (06:00)
[2016-11-15] MEDS: CEFEPIME 2GM/50 ML (PMX) 50 ML IV SCH ×3 (06:00→22:01)
[2016-11-15 08:06] VITALS: BP 174/76; RESP 17
[2016-11-15] MEDS: morphine 2 MG INJ IV PRN ×3 (08:40→23:29)
[2016-11-15] MEDS: FLUTICASONE 0.05% 16 GM NAS SPRAY NASAL SCH ×2 (08:43→22:00)
[2016-11-15] MEDS: SPIRONOLACTONE 25 MG TAB PO SCH (09:21)
[2016-11-15] MEDS: ASPIRIN 81 MG TAB PO SCH (09:22)
[2016-11-15] MEDS: METOPROLOL 100 MG TAB PO SCH ×2 (09:23→20:41)
[2016-11-15] MEDS: POTASSIUM CHLORIDE (SR) 8 MEQ CAP PO SCH (09:23)
[2016-11-15] MEDS: AMLODIPINE 10 MG TAB PO SCH (09:23)
[2016-11-15] MEDS: ENOXAPARIN 40 MG/0.4 ML SYG SC SCH (09:24)
[2016-11-15] MEDS: LISINOPRIL 20 MG TAB PO SCH (09:24)
[2016-11-15] MEDS: AZITHROMYCIN 500MG/NS (PMX) 250 ML IV SCH (12:33)
--- NOTE | 2016-11-15 13:31 | PN ---
DATE: 11/15/2016 CARDIOLOGY FOLLOWUP SUBJECTIVE: The patient's cough is better, is able to bring up the sputum. Does complain of headac he and arthritis pain. MEDICATIONS: Reviewed as per medical reconciliation, personally reviewed. PHYSICAL EXAMINATION: VITAL SIGNS: Temperature 98.5, heart rate of 95, blood pressure of 130s to 170s over 60s to 70s. R espiratory rate of 18. HEENT: Normocephalic, atraumatic. Pupils are equal. NECK: Supple. CARDIOVASCULAR: Regular rate and rhythm, systolic murmur. PULMONARY: With mild rhonchi but no wheezes. GASTROINTESTINAL: Soft, nontender. EXTREMITIES: Trivial edema. NEUROLOGIC: Awake and alert. PSYCHIATRIC: Anxious. LABORATORY: WBC of ____, hemoglobin 12.7, platelets 418. Sodium 143, potassium 3.5, BUN of 13, cre atinine 0.62, glucose of 132. ASSESSMENT AND PLAN: 1. Pneumonia, improved by antibiotics. 2. Hypertension. 3. Sick sinus syndrome, status post permanent pacemaker, currently normal function. 4. Left renal mass. Workup is pending still. 5. Nonanginal chest pain has resolved. RECOMMENDATIONS: We will continue with the current cardiac care. Antibiotic as per Dr. Tenorio. workup is still pending. Dictated By: KEVIN GARNER MD AV/SHANTEL Conf#: [id number] DID#: [id number] CC: SHANTA TENORIO MD;*EndCC*
[2016-11-15 14:25] VITALS: BP 142/67; PULSE 80
--- NOTE | 2016-11-15 14:32 | PN ---
DATE: 11/15/2016 SUBJECTIVE: Patient seen, complaining of mild medial calf pain. Otherwise, resting comfortably. C ase discussed with Dr. Merrill regarding patient's adrenal mass and findings on the CAT scan. PHYSICAL EXAMINATION: VITAL SIGNS: Temperature 98.5, pulse 94, respirations 17, blood pressure 134/76, saturation 94% on room air. GENERAL: No acute distress. HEENT: Normocephalic, atraumatic. The patient is pale. CARDIOVASCULAR: Positive S1 and S2, regular rate. LUNGS: Clear. ABDOMEN: Soft, nontender. EXTREMITIES: No clubbing, cyanosis, or edema. No specific findings on exam of lower extremities. LABORATORY DATA: White count continues to improve at 11.7, hemoglobin 12.7, hematocrit 40, platelet count 418, neutrophils 68%, lymphocytes 22%. Chemistry: Sodium is 146, potassium 3.5, chloride 10 5, bicarbonate 26, BUN is 13, creatinine 0.67, glucose of 132. Respiratory culture was negative. In fluenza A and B negative and blood cultures were negative. IMAGING: A CT scan of the abdomen and pelvis was done which showed dual-lead permanent pacemaker, m ild atelectasis at the left lung bases posteriorly, punctate calcifications in liver and spleen from previous granulomatous disease. There is a possible gallstone in the gallbladder, no evidence of c holecystitis, probable benign 1 cm low attenuation nodule inferiorly in the right adrenal gland. Th ere is an enhancing mass in the left adrenal mass measuring 2.2 x 3 cm. This may be malignant. Cor relation with MRI should be considered. Benign bilateral renal cyst. Inferior to the cyst in the m id left kidney there was a solid mass with irregular peripheral enhancement and calcification, measu ring approximately 2.5 x 2.3 cm. This is consistent with neoplasm. There is atherosclerosis, mild enlarged left retroperitoneal lymph node measuring 1.00 cm, degenerative changes of the spine and ot herwise unremarkable study. MEDICATIONS: Include: 1. Aldactone 25 mg daily. 2. Azithromycin IV daily. 3. Lovenox 40 mg subcutaneous daily. 4. Norvasc 10 mg daily. 5. Aspirin 81 mg daily. 6. Lisinopril 40 mg daily. 7. KCl 8 mEq daily. 8. Protonix 40 mg daily. 9. Cefepime 1 gram q.8 h. 10. Lopressor 100 b.i.d. 11. Flonase b.i.d. 12. Hydralazine 100 mg q.8 hours. 13. Ativan p.r.n. 14. Zofran p.r.n. 15. Nitroglycerin p.r.n. 16. Ibuprofen p.r.n. 17. Neon p.r.n. 18. Morphine p.r.n. 19. Ambien p.r.n. 20. Colace p.r.n. 21. Milk of magnesia p.r.n. 22. DuoNeb p.r.n. ASSESSMENT AND PLAN: 1. This is a 76-year-old female who is immunocompromised and she has psoriatic arthritis on Remicade, also history of pacemaker secondary to heart block who initially presented with 1 week of flu-like symptoms, was found to have pneumonia, severe leukocytosis. 2. Pneumonia, responding to above antibiotic management. White count is normalizing. Continue O2 support, breathing treatment as needed. Encourage her to ambulate. 3. Cardiovascular. The patient is status post pacemaker placement. Blood pressure remains high. Continue to titrate medications up. 4. Adrenal mass seen on previous CAT scan as well, back in 2011. Will ask the radiologist to ky re findings and Dr. Merrill was consulted for further recommendations. 5. Left renal mass concerning for malignancy. Dr. Mina, the urologist is following. Will refer to [facility] for possible laparoscopic resection. 6. Psoriatic arthritis status post Remicade. 7. Chest pain. Dr. Booth is following. No evidence of acute coronary syndrome. 8. Continue Protonix for gastrointestinal prophylaxis. 9. Encouraged her to get out of bed. DISPOSITION: Within 1 to 2 days. Dictated By: SHANTA CARRINGTON/SHANTEL Conf#: [id number] DID#: [id number]
--- NOTE | 2016-11-15 21:24 | PN ---
DATE: 11/15/2016 SUBJECTIVE: Left renal tumor and left adrenal mass. The patient is feeling comfortable. She has n o acute pain at the present. OBJECTIVE: VITAL SIGNS: She is afebrile. Temperature is 98.5, the pulse is 80, respirations 17, blood pressur e 142/67. ABDOMEN: Soft. IMAGING: CT scan of the abdomen and pelvis with IV contrast was done and that showed dual lead perm anent pacemaker, mild atelectasis at the left lung base posteriorly, punctate calcification in the l iver and spleen from previous granulomatous disease, possible gallstones in the gallbladder, no evid ence of cholecystitis, probably benign 1 cm low attenuation nodule inferiorly in the right adrenal g land, enhancing mass in the left adrenal measuring 2.2 x 3.0 cm. This may be malignant. Correlatio n with MRI should be considered. Benign bilateral renal cysts. Inferior to a cyst in the mid left kidney, there is a solid mass with irregular peripheral enhancement and calcification measuring appr oximately 2.5 x 2.3 cm. This is consistent with neoplasm, atherosclerosis, mild enlarged left retro peritoneal lymph node measuring 1 cm, degenerative changes at the spine, and otherwise unremarkable study. IMPRESSION: Left renal mass suspicious for cancer. Also left adrenal mass also that is enhancing a nd possible malignancy. Also, patient does have 1 cm retroperitoneal lymph node. PLAN: I think the adrenal mass as well as the left renal mass could be addressed at the same time b y a laparoscopic intervention as well as the retroperitoneal lymph nodes. These could be done lapar oscopically and I will try to communicate with the urologist at [facility] and see if he will accept her t o do that for her. I will then contact the patient and arrange for her to see him. Dictated By: ANUJA ODOM MD BB/NTS Conf#: [id number] DID#: [id number] CC: SHANTA TENORIO MD;*EndCC*
[2016-11-15 22:30] VITALS: BP 163/77
[2016-11-15 23:07] VITALS: BP 163/77; RESP 18
[2016-11-15 23:30] VITALS: BP_SYST 143; BP_SYST 153; BP_DIAS 72
[2016-11-15] MEDS: ONDANSETRON 4 MG INJ IV PRN (23:35)
[2016-11-16] MEDS: PANTOPRAZOLE (EC) 40 MG TAB PO SCH (05:39)
[2016-11-16] MEDS: CEFEPIME 2GM/50 ML (PMX) 50 ML IV SCH ×2 (05:39→14:45)
[2016-11-16 06:56] LABS: ADD SCAN DIFF NO
[2016-11-16 07:00] LABS: BASOPHIL # 0.1 10^3/ul (0.0-0.1); BASOPHILS % 0.5 % (0.0-2.0); EOSINOPHILS # 0.2 10^3/ul (0.0-0.5); EOSINOPHILS % 1.8 % (0.0-7.0); HEMATOCRIT 36.8 % (37.0-47.0); LYMPHOCYTES # 3.2 10^3/ul (0.8-2.9); LYMPHOCYTES % 34.5 % (15.0-51.0); MEAN CORPUSCULAR HEMOGLOBIN 29.3 pg (29.0-33.0); MEAN CORPUSCULAR HGB CONC 32.6 g/dl (32.0-37.0); MEAN PLATELET VOLUME 9.5 fl (7.4-10.4); MONOCYTE # 0.8 10^3/ul (0.3-0.9); MONOCYTES % 8.9 % (0.0-11.0); NEUTROPHIL # 4.9 10^3/ul (1.6-7.5); NEUTROPHILS % 52.7 % (39.0-77.0); PLATELET COUNT 423 10^3/UL (140-415); RED BLOOD COUNT 4.09 10^6/ul (4.20-5.40); RED CELL DISTRIBUTION WIDTH 13.3 % (11.5-14.5); WHITE BLOOD COUNT 9.2 10^3/ul (4.8-10.8)
--- NOTE | 2016-11-16 07:47 | PN ---
DATE: 11/14/2016 CARDIOLOGY FOLLOWUP SUBJECTIVE: Patient with less cough and less shortness of breath but is being better. No palpitati on. Medication was reviewed. Rhythm strip was reviewed. The patient remains in sinus rhythm. MEDICATIONS: Reviewed. PHYSICAL EXAMINATION: VITAL SIGNS: Temperature 98.5, heart rate of 87, blood pressure 143/76, respiratory rate of 18. HEENT: Normocephalic, atraumatic. Pupils are equal. CARDIOVASCULAR: Regular rate and rhythm, systolic murmur. PULMONARY: No wheezes heard now, mild rhonchi. GASTROINTESTINAL: Soft, nontender. EXTREMITIES: Positive trivial edema. NEUROLOGIC: Awake, responds appropriately. PSYCHIATRIC: Appears to be calm and pleasant. LABORATORY DATA: normal stephen. Blood cultures negative x2 days. ASSESSMENT AND PLAN: 1. Non-anginal chest pain has resolved. 2. Pneumonia. 3. Sick sinus syndrome, status post permanent pacemaker. 4. arthritis 5. Hypertension. 6. Renal mass. RECOMMENDATIONS: Aldactone was added to her regimen. Continue with multiple BP medication. Antibi otic as per Dr. Ravi. workup is still pending. Dictated By: KEVIN GARNER MD AV/SHANTEL Conf#: [id number] DID#: [id number]
[2016-11-16 07:58] VITALS: BP 174/81; RESP 16
[2016-11-16] MEDS: ASPIRIN 81 MG TAB PO SCH (08:58)
[2016-11-16] MEDS: SPIRONOLACTONE 25 MG TAB PO SCH (08:58)
[2016-11-16] MEDS: POTASSIUM CHLORIDE (SR) 8 MEQ CAP PO SCH (08:59)
[2016-11-16] MEDS: METOPROLOL 100 MG TAB PO SCH (08:59)
[2016-11-16] MEDS: LISINOPRIL 20 MG TAB PO SCH (08:59)
[2016-11-16] MEDS: AMLODIPINE 10 MG TAB PO SCH (09:00)
[2016-11-16] MEDS: FLUTICASONE 0.05% 16 GM NAS SPRAY NASAL SCH (09:00)
[2016-11-16] MEDS: ENOXAPARIN 40 MG/0.4 ML SYG SC SCH (09:02)
[2016-11-16] MEDS: AZITHROMYCIN 500MG/NS (PMX) 250 ML IV SCH (12:00)
--- NOTE | 2016-11-16 14:20 | CONS ---
Date/Time of Note Date/Time of Note DATE: 11/16/16 TIME: 14:13 Consult Date/Type/Reason Admit Date/Time Nov 12, 2016 at 12:46 Initial Consult Date November 13, 2016 Reason for Consultation Psoriatic Arthritis Subjective Pneumonia apparently much improved. Patient without cough or increased SOB. No new complaints. Objective Gen. Alert. Ox3, NAD Skin without acute rash. HEENT without acute changes Neck supple Chest clear to ausc. Heart RRR Abd. soft wiithout tenderness. Ext. No synovitis. Vital Signs Date Time Temp Pulse Resp B/P Pulse Ox O2 Delivery O2 Flow Rate FiO2 11/16/16 07:58 98.7 86 16 174/81 95 11/15/16 00:59 21 11/12/16 12:47 Room Air 11/12/16 07:14 2 Intake and Output 11/15/16 11/15/16 11/16/16 15:00 23:00 07:00 Intake Total 1050 ml 320 ml Output Total 925 ml Balance 125 ml 320 ml Results/Medications Result Diagram: 11/16/16 0525 11/15/16 0453 Results 24 hrs Laboratory Tests Test 11/16/16 05:25 Basophils # 0.1 Basophils % 0.5 Eosinophils # 0.2 Eosinophils % 1.8 Hematocrit 36.8 L Hemoglobin 12.0 Lymphocytes # 3.2 H Lymphocytes % 34.5 Mean Corpuscular Hemoglobin 29.3 Mean Corpuscular Hemoglobin Concent 32.6 Mean Corpuscular Volume 90.0 Mean Platelet Volume 9.5 Monocytes # 0.8 Monocytes % 8.9 Neutrophils # 4.9 Neutrophils % 52.7 Nucleated Red Blood Cells # 0.0 Nucleated Red Blood Cells % 0.0 Platelet Count 423 H Red Blood Count 4.09 L Red Cell Distribution Width 13.3 White Blood Count 9.2 # Medications Current Medications Lorazepam (Ativan) 0.5 mg Q8H PRN PO ANXIETY; Start 11/12/16 at 13:30 Ondansetron HCl (Zofran Inj) 4 mg Q6H PRN IV NAUSEA AND/OR VOMITING Last administered on 11/15/16t 23:35; Admin Dose 4 MG; Start 11/12/16 at 13:30 Nitroglycerin (Nitroglycerin (Sl Tab) 0.4 Mg) 1 tab Q5M PRN SL CHEST PAIN; Start 11/12/16 at 13:30 Ibuprofen (Motrin) 600 mg Q6H PRN PO PAIN LEVEL 1-3 OR FEVER Last administered on 11/14/16 04:59; Admin Dose 600 MG; Start 11/12/16 at 13:30 Acetaminophen/ Hydrocodone Bitart (Ophelia (5/325)) 1 tab Q6H PRN PO PAIN LEVEL 4 -6 Last administered on 11/13/16 21:35; Admin Dose 1 TAB; Start 11/12/16 at 13: 30 Morphine Sulfate (morphine) 2 mg Q4H PRN IV PAIN LEVEL 7-10 Last administered on 11/15/16 23:29; Admin Dose 2 MG; Start 11/12/16 at 13:30 Zolpidem Tartrate (Ambien) 5 mg QHS PRN PO INSOMNIA; Start 11/12/16 at 13:30 Docusate Sodium (Colace) 100 mg Q12H PRN PO CONSTIPATION; Start 11/12/16 at 13: 30 Magnesium Hydroxide (Milk Of Mag) 30 ml DAILY PRN PO CONSTIPATION; Start at 13:30 Pantoprazole (Protonix Tab) 40 mg DAILY@06 PO Last administered on 11/16/16 05 :39; Admin Dose 40 MG; Start 11/13/16 at 06:00 Enoxaparin Sodium 40 mg 40 mg DAILY SC Last administered on 11/16/16 09:02; Admin Dose 40 MG; Start 11/13/16 at 09:00 Azithromycin 250 ml @ 250 mls/hr Q24H IV Last administered on 11/16/16 12:00 ; Admin Dose 250 MLS/HR; Start 11/13/16 at 12:00 Cefepime HCl (Maxipime 2gm/50 ml (Pmx)) 50 ml @ 100 mls/hr Q8 IV Last administered on 11/16/16 05:39; Admin Dose 100 MLS/HR; Start 11/12/16 at 22:00 Amlodipine Besylate (Norvasc) 10 mg DAILY PO Last administered on 11/16/16 09: 00; Admin Dose 10 MG; Start 11/13/16 at 09:00 Aspirin (Aspirin) 81 mg DAILY PO Last administered on 11/16/16 08:58; Admin Dose 81 MG; Start 11/13/16 at 09:00 Fluticasone Propionate (Flonase 0.05% Nasal) 1 spray BID NASAL Last administered on 11/16/16 09:00; Admin Dose 1 SPRAY; Start 11/12/16 at 15:00 Hydralazine HCl (Apresoline) 100 mg Q8 PO Last administered on 11/16/16 05:40 ; Admin Dose 100 MG; Start 11/12/16 at 14:00 Lisinopril (Zestril) 40 mg DAILY PO Last administered on 11/16/16 08:59; Admin Dose 40 MG; Start 11/13/16 at 09:00 Metoprolol Tartrate (Lopressor) 100 mg BID PO Last administered on 11/16/16 08 :59; Admin Dose 100 MG; Start 11/12/16 at 21:00 Potassium Chloride (Micro-K) 8 meq DAILY PO Last administered on 11/16/16 08: 59; Admin Dose 8 MEQ; Start 11/13/16 at 09:00 Spironolactone (Aldactone) 25 mg DAILY PO Last administered on 11/16/16 08:58 ; Admin Dose 25 MG; Start 11/14/16 at 13:30 Hydralazine HCl (Apresoline) 25 mg Q4 PRN PO SBP > 160 Last administered on 23:29; Admin Dose 25 MG; Start 11/15/16 at 23:30 Assessment/Plan Chief Complaint/Hosp Course Ass. 1. Pneumonia Resolving. 2. Psoriatic Arthritis Stable 3. Leukocytosis Resolved to baseline. 4. Renal mass Needs further work up as outpatient. 5. Adrenal mass Needs further eval as outpatient. Plan Agree with present plan. Problems: RENUKA BRUNER MD Nov 16, 2016 14:19
--- NOTE | 2016-11-16 15:08 | PDOCDIS ---
Discharge Instructions CONDITION Patient Condition: Stable HOME CARE INSTRUCTIONS: Special Diet: Regular ACTIVITY: Activity Restrictions: Slowly Increase Activity FOLLOW UP/APPOINTMENTS Appointments discharge to [facility], see reconciliation. follow up at [facility] - urology [phone] treatment for renal cell cancer SHANTA TENORIO MD Nov 16, 2016 15:08
--- NOTE | 2016-11-16 17:19 | DS ---
DATE OF ADMISSION: 11/12/2016 DATE OF DISCHARGE: 11/16/2016 REASON FOR ADMISSION: Chest pain, shortness of breath, pneumonia. HOSPITAL COURSE: The patient is a 76-year-old female very well known to me. She has hist ory of psoriatic arthritis; arthralgia; questionable interstitial lung disease; hypertension; osteop orosis; history of leukocytosis, status post bone marrow biopsy in the past; history of thyroid nodu les, followed closely by Dr. Segovia, the senior chemical process engineer. The patient also has history of left adr enal mass and renal mass dating back in 2011. She has been seen extensively by the senior chemical process engineer, and it appears that patient's adrenal mass is benign. There is definitely stability to it. In add ition, the patient is followed closely by Dr. Marshall and Dr. Machuca, the clothing patternmaker, as gee encarnacion has psoriatic arthritis where she takes Remicade. The patient was in usual state of health up un til 1 week prior to admission when she noted progressive worsening cough and shortness of breath. U alma arrival to the emergency department, a CAT scan, CT pulmonary angiogram was performed which show ed the following: Dense consolidation in the posterior aspect of the left upper lobe in keeping wit h pneumonia. There was also, unfortunately, a partially imaged approximately 3 x 3 cm solid mass in the left kidney, basically no pulmonary embolism. There was also 3 cm left adrenal mass and isai ioma in the left hepatic lobe, unchanged. Multiple physicians were consulted during this hospitaliz ation including Dr. Reinaldo Mina, the urologist; Dr. Charlie Marshall, the clothing patternmaker; and Dr. Nando Booth, the chief informatics officer. The patient was found to have significant leukocytosis of 30.9 bec ause of her immunocompromised state as she takes Remicade. I started her on broad-spectrum antibiot ic with cefepime and azithromycin for pneumonia. The patient responded well as the patient's white count normalized every day, and today white count is finally normal at 9.2. The patient clinically improved as well. Workup for renal mass was done including a renal ultrasound which showed again a 3 cm heterogeneously hypoechoic solid nodule in the superior pole of the left kidney. Malignancy is not excluded. Further characterization with CT urogram or MRI is recommended. The patient is stat us post pacemaker, so MRI was not done. Also there was a 5 mm nonobstructing stone in the midportio n of the right kidney, questionable trace left hydronephrosis. This was followed by dedicated CT sc an of the abdomen and pelvis with and without contrast which showed the following: Mild atelectasis of the left lung base posteriorly; punctate calcification in the liver and spleen from previous gra nulomatous disease; possible gallstone in the gallbladder, no evidence of cholecystitis; a probably benign 1 cm low-attenuation nodule inferiorly in the right adrenal gland; enhancing mass in the left adrenal measuring 2.2 x 3 cm, may be malignant, correlation with MRI may be considered; benign bila teral renal cysts. Inferior to the cyst in the mid left kidney, there is a solid mass with irregula r peripheral enhancement and calcification measuring approximately 2.5 x 2.3 cm. This is consistent with neoplasm. There is atherosclerosis, mildly enlarged left retroperitoneal lymph node measuring 1.0 cm, degenerative changes of the spine. Dr. Mina recommended outpatient followup at [facility] for possible laparoscopic resection of the kidney mass. The patient clinically improved. She does bj e pain medications for arthralgia. Cultures including blood cultures, respiratory cultures were neg ative. Influenza A and B were negative as well. DISCHARGE MEDICATIONS: The patient will be discharged with the following medication: 1. DuoNeb every 2 hours p.r.n. for shortness of breath. 2. Norvasc 10 mg daily. 3. Aspirin 81 mg daily. 4. Cefepime 2 grams ____ q.12 times 5 days. 5. Colace 100 q.12. 6. Lovenox 40 mg subQ daily. 7. Flonase b.i.d. 8. Hydralazine 100 q.8 hours and 25 q.4 p.r.n. for systolic blood pressure greater than 165. 9. Spearman 5/325, will make it 10/325 q.6 p.r.n. for moderate pain. 10. Motrin 800 mg p.o. q.8 hours p.r.n., take with food. 11. Zestril 20 mg daily. 12. Ativan 0.5 q.8 p.r.n. 13. Milk of magnesia p.r.n. 14. Lopressor 100 mg b.i.d. 15. Nitroglycerin p.r.n. for chest pain. 16. Zofran 4 mg p.o. q.4 p.r.n. for nausea and vomiting. 17. Protonix 40 mg daily. 18. KCl 8 mEq daily. 19. Aldactone 25 mg daily. 20. Ambien 5 mg at bedtime p.r.n. for insomnia. LABORATORY DATA: Again, labs today show normalization of the white count to 9.2, hemoglobin 12, hem atocrit 37, platelet count 423. FINAL DIAGNOSES: 1. Pneumonia. 2. Chest pain, rule out acute coronary syndrome. Serial troponins negative. 3. Left renal mass concerning for malignancy/neoplasm. 4. Left adrenal mass, likely benign, stable. 5. History of thyroid nodules. 6. Hypertension. 7. Psoriatic arthritis. 8. Chronic pain syndrome. 9. Osteoarthritis. 10. Macular degeneration. 11. Sick sinus syndrome, status post pacemaker placement. DIET: 2 gram sodium. ACTIVITY: As tolerated. Complete course of antibiotics at the [facility]. DISPOSITION: The patient will be discharged today. The patient to follow up at [facility] for hopefully laparoscopic resection of renal tumor which is most likely a malignant tumor. The patient will be d ischarged today. Dictated By: SHANTA CARRINGTON/SHANTEL Conf#: [id number] DID#: [id number]
--- NOTE | 2016-11-16 18:23 | PN ---
DATE: 11/16/2016 SUBJECTIVE: Left renal tumor and left adrenal mass. The patient is feeling comfortable, and she carrizales s no acute pain at the present. OBJECTIVE: VITAL SIGNS: Her temperature is 98.7, the pulse 86, respirations 16, blood pressure 174/81. ABDOMEN: Soft. There is no abdominal tenderness. LABORATORY DATA: The CBC shows a white count of 9.2, hemoglobin 12.0, hematocrit is 36.8. BUN 13, creatinine 0.62, sodium 146, potassium 3.5, chloride 105, CO2 26. IMPRESSION: Left renal tumor and left adrenal mass which is being worked up. PLAN: The patient would be able to go home tonight, and then I will follow up on her. She is going to [facility], and I will be in touch with her to arrange for her to see the urologist at [facility] to undergo the laparoscopic tumor resection. Dictated By: ANUJA MEDLEY/SHANTEL Conf#: [id number] DID#: [id number]
--- NOTE | 2016-11-17 06:34 | PN ---
DATE: 11/16/2016 CARDIOLOGY FOLLOWUP SUBJECTIVE: The patient is breathing better, is chest pain-free now. Cough has significantly impro shabnam and . MEDICATIONS: Reviewed as per medical record; personally reviewed. PHYSICAL EXAMINATION: VITAL SIGNS: Temperature 98.7, heart rate of 86, blood pressure 174/81, respiration rate of 16, sat urating 95%. HEENT: Normocephalic, atraumatic. Pupils are equal. CARDIOVASCULAR: Regular rate and rhythm, systolic murmur. PULMONARY: With minimal rhonchi. GASTROINTESTINAL: Soft, nontender. EXTREMITIES: No significant lower extremity edema. NEUROLOGIC: Awake, alert. PSYCHIATRIC: Calm, pleasant. LABORATORY: WBC of 9.2, hemoglobin 12, platelets of 423. Sodium 146, potassium 3.5, BUN of 13, cre atinine 0.62, glucose 132. ASSESSMENT AND PLAN: 1. Non-anginal chest pain, has resolved though. 2. Pneumonia. 3. Sick sinus syndrome with permanent pacemaker, currently with no malfunction. 4. Renal mass, workup is pending. 5. Hypertension. 6. History of psoriatic arthritis. RECOMMENDATIONS: Antibiotic as per Dr. Ravi's recommendations. Aldactone will be continued. Aspi rin will be continued. Lisinopril will be continued. Beta bonnie will be continued with the metop rolol. workup as per Dr. Mina. Dictated By: KEVIN MITCHELL/SHANTEL Conf#: [id number] DID#: [id number]
--- NOTE | 2016-11-20 10:49 | PQ ---
Date/Time of Note Date/Time of Note DATE: 11/20/16 TIME: 10:42 Physician Query Documentation Clarification Dear Dr. Ravi, A review of the medical record found a need for documentation clarification. Hx : 76-year-old female who is immunocompromised as she has psoriatic arthritis, on Remicade, status post pacemaker placement, a history of persistent leukocytosis, and chronic pain, who presents with almost 1 week of flu-like symptoms and was found to have pneumonia, severe leukocytosis, Other clinical findings :WBC = 30.9 --> 19.2 t= 102 ME = 106 Please clarify the clinical significance of the above findings: To facilitate accurate and complete coding, please ginger ( x ) the suspected diagnosis that apply: ( x ) SIRS due to pneumonia with Sepsis present on admission ( ) SIRS due to pneumonia without Sepsis ( ) No clinical significance ( ) Unable to determine ( ) Others Please provide your response by clicking edit document, making your choice ( x ), click ok/save and finally click sign. You may also document your response on your progress notes. Thank you for your time. Sammy Zuniga, RN, BSN, CCS, CCDS Clinical Supplier Development Manager Health Information Management, CD[employer] and Coding Services [phone] Room [address] [place] [id number] SAMMY ZUNIGA Nov 20, 2016 10:49 SHANTA RAVI MD Nov 20, 2016 16:43
== END 2016-11-16 18:05 | DRG 871 ==
LOC: E/R 07:02 → TEL 12:46 → PP2 11-14 19:12
PROVIDERS: ADMIT Internal Medicine; ATTEND Internal Medicine
DX: A41.9 Sepsis, unspecified organism (principal); J18.9 Pneumonia, unspecified organism; J98.11 Atelectasis; L40.50 Arthropathic psoriasis, unspecified; I10 Essential (primary) hypertension; D49.512 Neoplasm of unspecified behavior of left kidney; E27.9 Disorder of adrenal gland, unspecified; F12.90 Cannabis use, unspecified, uncomplicated; G89.4 Chronic pain syndrome; H35.30 Unspecified macular degeneration; R07.9 Chest pain, unspecified; M19.90 Unspecified osteoarthritis, unspecified site; M21.962 Unspecified acquired deformity of left lower leg; Z95.0 Presence of cardiac pacemaker; Z79.82 Long term (current) use of aspirin; Z79.899 Other long term (current) drug therapy; Z87.891 Personal history of nicotine dependence; Z23 Encounter for immunization
CPT/HCPCS: 71010; 71275; 74177; 76775; 80048; 80053; 82088; 82382; 82384; 82530; 82550; 82553; 83605; 83735; 83835; 83880; 84100; 84244; 84443; 84484; 85025; 85610; 85730; 87040; 87070; 87400; 90686; 93005; J0456; J0692; J0696; J1650; J2270; J2405; J7030; J7040; Q9967